=== PATIENT | female | born 1955 | race Hispanic/Latino ===

== ENCOUNTER 2018-05-10 17:25 | Emergency (ER) | payer BC ==
[2018-05-10 20:33] LABS: Absolute Lymphocytes (CBC) 0.7 K/uL (0.7-4.9); Absolute Monocytes 0.4 K/uL (0.1-1.3); Absolute Neutrophil 3.5 K/uL (1.8-8.0); Basophils % 0.5 % (0-1.3); Eosinophils % 0.4 % (0-4.4); Hematocrit 36.7 % (36.0-45.0); Lymphocytes % 14.3 % (15.3-44.8); MPV 7.4 fL (7.6-11.3); Monocytes % 9.6 % (3.3-12.3); RBC Red Blood Cell Count 4.49 M/uL (3.86-4.86)
[2018-05-10 20:55] LABS: Urine Appearance CLEAR; Urine Bilirubin NEGATIVE (NEG); Urine Blood TRACE (NEG); Urine Color YELLOW; Urine Glucose NEGATIVE (NEG); Urine Protein 1+ (NEG); Urine Specific Gravity <=1.005 (1.005-1.030); Urine Urobilinogen 0.2 mg/dL (0.2-1.0); Urine pH 7.5 (5.0-7.0)
[2018-05-10 20:58] LABS: Albumin 3.6 g/dL (3.4-5.0); Bilirubin Direct 0.3 mg/dL (0-0.2); Bilirubin Total 0.8 mg/dL (0.2-1.0); Protein, Total 8.1 g/dL (6.4-8.2)
[2018-05-10] MEDS ORDERED: NA CHLORIDE 0.9% 1,000 ML ONE (21:02)
[2018-05-10] MEDS ORDERED: MORPHINE 4 MG/ML SYR ONE ×2 (21:02→23:09)
[2018-05-10] MEDS ORDERED: ONDANSETRON 4 MG/2 ML VIAL ONE (21:02)
[2018-05-10 21:15] LABS: Urine Microscopic Reflex ORDER UMIC
[2018-05-10 21:20] LABS: Urine Bacteria 20-50 /HPF (<20); Urine Culture Reflex Order REFLEXED
[2018-05-10] MEDS ORDERED: KCL 20 MEQ/100 mL IVPB 20 MEQ/100 ML BAG IV ONE (22:29)
--- NOTE | 2018-05-10 23:12 | ER ---
Nurse's Notes [facility] Name: Fiona Gonzalez Age: 62 yrs Sex: Female : 1955 Arrival Date: 05/10/2018 Time: 17:27 Bed 20 Private MD: out of town, doctor Diagnosis: Retroperitoneal mass Presentation: 05/10 17:30 Presenting complaint: Patient states: known umbilical hernia x 1 month. c/o pain. sv Transition of care: patient was not received from another setting of care. Onset of symptoms was April 2018. Care prior to arrival: None. 17:30 Method Of Arrival: Wheelchair sv 17:30 Acuity: AYANNA 3 sv Triage Assessment: 17:30 General: Appears in no apparent distress. uncomfortable, obese, Behavior is calm, sv cooperative, appropriate for age. Respiratory: Respiratory effort is even, unlabored, Respiratory pattern is regular, symmetrical. Historical: - Allergies: 17:31 No Known Allergies; sv - PMHx: 17:31 Umbilical hernia; Hypertension; sv - PSHx: 17:31 ; sv Screenin:55 Abuse screen: Denies threats or abuse. Nutritional screening: No deficits noted. jb4 Tuberculosis screening: No symptoms or risk factors identified. Fall Risk IV access (20 points). Ambulatory Aid- Crutches/Cane/Walker (15 pts). Total Etienne Fall Scale indicates Low Risk Score (25-44 pts). Fall prevention measures have been instituted. Side Rails Up X 2 Placed close to Nursing Station Frequent Obs/Assesments occuring Family Present and informed to notify staff if they need to leave bedside. Assessment: 19:55 General: Appears in no apparent distress. uncomfortable, Behavior is calm, cooperative, jb4 appropriate for age. Pain: Complains of pain in umbilical area Pain radiates to abdomen Pain currently is 10 out of 10 on a pain scale. Quality of pain is described as burning, stabbing, Pain began 2-3 days ago. Is intermittent. Neuro: Level of Consciousness is awake, alert, obeys commands, Oriented to person, place, time, situation. Cardiovascular: Patient's skin is warm and dry. Respiratory: Airway is patent Respiratory effort is even, unlabored, Respiratory pattern is regular, symmetrical. GI: Abdomen is non-distended, obese, Bowel sounds present X 4 quads. Abd is soft X 4 quads Abdomen is tender to palpation X 4 quads. : No signs and/or symptoms were reported regarding the genitourinary system. EENT: No signs and/or symptoms were reported regarding the EENT system. Derm: Skin is intact, Skin is pink, warm \T\ dry. Musculoskeletal: Circulation, motion, and sensation intact. 21:00 Reassessment: Patient appears in no apparent distress at this time. Patient and/or jb4 family updated on plan of care and expected duration. Pain level reassessed. Patient is alert, oriented x 3, equal unlabored respirations, skin warm/dry/pink. 22:30 Reassessment: Patient appears in no apparent distress at this time. Patient and/or jb4 family updated on plan of care and expected duration. Pain level reassessed. Patient is alert, oriented x 3, equal unlabored respirations, skin warm/dry/pink. Provider at the bedside. 22:30 Reassessment: Patient appears in no apparent distress at this time. Patient and/or jb4 family updated on plan of care and expected duration. Pain level reassessed. Patient is alert, oriented x 3, equal unlabored respirations, skin warm/dry/pink. 23:30 Reassessment: Patient appears in no apparent distress at this time. Patient and/or jb4 family updated on plan of care and expected duration. Pain level reassessed. Patient is alert, oriented x 3, equal unlabored respirations, skin warm/dry/pink. 23:59 Reassessment: Report called to HUNTER Kamara at [facility]. jb4 05/11 00:30 Reassessment: Patient appears in no apparent distress at this time. Patient and/or jb4 family updated on plan of care and expected duration. Pain level reassessed. Patient is alert, oriented x 3, equal unlabored respirations, skin warm/dry/pink. 01:21 Reassessment: Patient appears in no apparent distress at this time. Patient and/or jb4 family updated on plan of care and expected duration. Pain level reassessed. Patient is alert, oriented x 3, equal unlabored respirations, skin warm/dry/pink. PT being transferred to receiving facility By EMS. Vital Signs: 05/10 17:31 BP 164 / 76; Pulse 89; Resp 18; Temp 98.7; Pulse Ox 100% ; Weight 113.4 kg; Height 5 sv ft. 1 in. (154.94 cm); Pain 10/10; 20:30 BP 147 / 96; Pulse 94; Resp 16; Pulse Ox 98% on R/A; jb4 21:00 BP 168 / 93; Pulse 83; Resp 16; Pulse Ox 97% on R/A; jb4 22:30 BP 165 / 86; Pulse 83; Resp 16; Pulse Ox 100% on R/A; jb4 22:56 BP 128 / 81; Pulse 66; Resp 17; Temp 98.0; Pulse Ox 100% on R/A; jb4 04 00:00 BP 141 / 57; Pulse 89; Resp 16; Pulse Ox 98% on R/A; jb4 01:21 BP 129 / 89; Pulse 86; Resp 16; Pulse Ox 96% ; jb4 05/10 17:31 Body Mass Index 47.24 (113.40 kg, 154.94 cm) sv ED Course: 05/10 17:27 Patient arrived in ED. as 17:29 out of town, doctor is Private Physician. as 17:31 Triage completed. sv 17:32 Arm band placed on. sv 19:20 Chino Nix MD is Attending Physician. tw4 19:55 Patient has correct armband on for positive identification. Placed in gown. Bed in low jb4 position. Call light in reach. Side rails up X 1. Pulse ox on. NIBP on. 19:58 Radiology exam delayed due to lab results not completed at this time. (BUN/Creatinine). vm2 20:00 Missed attempt(s): 20 gauge in left antecubital area. jb4 20:14 Radiology exam delayed due to lab results not completed at this time. (BUN/Creatinine). vm2 20:35 Wong Purcell, RN is Primary Nurse. jb4 21:[address] via wheelchair. vm2 21:21 CT completed. Patient tolerated procedure well. Patient moved back from CT. nj 21:41 CT Abd/Pelvis - W/Contrast In Process Unspecified. EDMS 05/11 01:21 No provider procedures requiring assistance completed. Patient transferred, IV remains jb4 in place. Administered Medications: 05/10 21:06 Drug: Zofran 4 mg Route: IVP; Site: left wrist; jb4 21:30 Follow up: Response: No adverse reaction; Nausea is decreased jb4 21:08 Drug: NS 0.9% 1000 ml Route: IV; Rate: 1 bolus; Site: left wrist; jb4 22:20 Follow up: Response: No adverse reaction; IV Status: Completed infusion; IV Intake: jb4 1000ml 21:09 Drug: morphine 4 mg Route: IVP; Site: left wrist; jb4 21:30 Follow up: Response: No adverse reaction; Pain is decreased jb4 22:23 Drug: Potassium Chloride 20 mEq Route: IV; Rate: calculated rate; Site: left wrist; jb4 05/11 00:00 Follow up: Response: No adverse reaction; IV Status: Completed infusion; IV Intake: jb4 100ml 05/10 23:01 Drug: morphine 4 mg Route: IVP; Site: left wrist; jb4 23:50 Follow up: Response: No adverse reaction; Pain is decreased jb4 Intake: 22:20 IV: 1000ml; Total: 1000ml. jb4 05/11 00:00 IV: 100ml; Total: 1100ml. jb4 Outcome: 05/10 23:12 ER care complete, transfer ordered by . tw4 05/11 01:21 Transferred by ground EMS to [facility], Transfer form completed. jb4 Condition: stable Discharge instructions given to patient, Instructed on the need for transfer, Demonstrated understanding of instructions. 01:31 Patient left the ED. jb4 Signatures: Dispatcher [employer] EDMS Maria Luisa Serrano RN RN sv Martinez, Amelia as Bryson, James, RN RN jb4 Kwasi Hsu [facility] Chino Nix MD MD tw4 Corrections: (The following items were deleted from the chart) 01:05/10 20:00 Risk Assessment: Do you want to hurt yourself or someone else? Patient jb4 reports no desire to harm self or others. jb4 05/11 01: 04 20:00 Initial Sepsis Screen: Does the patient meet any 2 criteria? No. Patient's jb4 initial sepsis screen is negative. Does the patient have a suspected source of infection? No. Patient's initial sepsis screen is negative. jb4
--- NOTE | 2018-05-10 23:12 | EDPHYS ---
Physician Documentation [facility] Name: Fiona Gonzalez Age: 62 yrs Sex: Female : 1955 Arrival Date: 05/10/2018 Time: 17:27 Bed 20 Private MD: out of town, doctor ED Physician Chino Nix HPI: 05/11 01:20 This 62 yrs old Female presents to ER via Wheelchair with complaints of tw4 Umbilical Hernia. 01:20 The patient presents with abdominal pain. The symptoms do not radiate. Associated signs tw4 and symptoms: none. The symptoms are described as dull. Modifying factors: The symptoms are alleviated by nothing, the symptoms are aggravated by nothing. Severity of pain: At its worst the pain was moderate in the emergency department the pain. 3 week(s) ago, and became worse yesterday, The patient has not experienced similar symptoms in the past. Historical: - Allergies: 05/10 17:31 No Known Allergies; sv - PMHx: 17:31 Umbilical hernia; Hypertension; sv - PSHx: 17:31 ; sv ROS: 05/11 01:20 Constitutional: Negative for fever, chills, and weight loss, Eyes: Negative for injury, tw4 pain, redness, and discharge, Cardiovascular: Negative for chest pain, palpitations, and edema, Respiratory: Negative for shortness of breath, cough, wheezing, and pleuritic chest pain, Back: Negative for injury and pain, MS/Extremity: Negative for injury and deformity, Skin: Negative for injury, rash, and discoloration, Neuro: Negative for headache, weakness, numbness, tingling, and seizure. Abdomen/GI: Positive for abdominal pain. Exam: 01:20 Constitutional: This is a well developed, well nourished patient who is awake, alert, tw4 and in no acute distress. Head/Face: Normocephalic, atraumatic. Chest/axilla: Normal chest wall appearance and motion. Nontender with no deformity. No lesions are appreciated. Cardiovascular: Regular rate and rhythm with a normal S1 and S2. No gallops, murmurs, or rubs. Normal PMI, no JVD. No pulse deficits. Respiratory: Lungs have equal breath sounds bilaterally, clear to auscultation and percussion. No rales, rhonchi or wheezes noted. No increased work of breathing, no retractions or nasal flaring. Back: No spinal tenderness. No costovertebral tenderness. Full range of motion. Skin: Warm, dry with normal turgor. Normal color with no rashes, no lesions, and no evidence of cellulitis. 01:20 Abdomen/GI: Inspection: abdomen appears normal, Bowel sounds: normal, Palpation: mild abdominal tenderness, Hernia: noted in the umbilical area, incarceration, is not appreciated, tenderness, that is mild. Vital Signs: 05/10 17:31 BP 164 / 76; Pulse 89; Resp 18; Temp 98.7; Pulse Ox 100% ; Weight 113.4 kg; Height 5 sv ft. 1 in. (154.94 cm); Pain 10/10; 20:30 BP 147 / 96; Pulse 94; Resp 16; Pulse Ox 98% on R/A; jb4 21:00 BP 168 / 93; Pulse 83; Resp 16; Pulse Ox 97% on R/A; jb4 22:30 BP 165 / 86; Pulse 83; Resp 16; Pulse Ox 100% on R/A; jb4 22:56 BP 128 / 81; Pulse 66; Resp 17; Temp 98.0; Pulse Ox 100% on R/A; jb4 05/11 00:00 BP 141 / 57; Pulse 89; Resp 16; Pulse Ox 98% on R/A; jb4 01:21 BP 129 / 89; Pulse 86; Resp 16; Pulse Ox 96% ; jb4 05/10 17:31 Body Mass Index 47.24 (113.40 kg, 154.94 cm) sv MDM: 05/10 19:20 Patient medically screened. [facility] 05/11 01:22 Data reviewed: vital signs, nurses notes. Data interpreted: Pulse oximetry: tw4 Interpretation: normal. Counseling: I had a detailed discussion with the patient and/or guardian regarding: the historical points, exam findings, and any diagnostic results supporting the discharge/admit diagnosis. 05/10 19:22 Order name: Basic Metabolic Panel; Complete Time: 21:57 [facility] 05/10 22:38 Interpretation: Normal except: K 3.0; NA 131; CL 92; GLUC 118; GFR 68. [facility] 05/10 19:22 Order name: CBC with Diff; Complete Time: 21:57 [facility] 05/10 22:39 Interpretation: Normal except: MCH 26.7; LYM% 14.3; WILEY% 75.2; MPV 7.4. [facility] 05/10 19:22 Order name: Creatinine for Radiology; Complete Time: 21:59 [facility] 05/10 19:22 Order name: Hepatic Function; Complete Time: 21:59 [facility] 05/10 22:39 Interpretation: Normal except: BILID 0.3; GLOB 4.5; A/G 0.8. [facility] 05/10 19:22 Order name: Lipase; Complete Time: 21:59 [facility] 05/10 19:23 Order name: Urinalysis; Complete Time: 21:59 [facility] 05/10 22:39 Interpretation: Normal except: UBLD TRACE; UPH 7.5; UPROT 1+; UESTR 2+. [facility] 05/10 19:24 Order name: CT Abd/Pelvis - W/Contrast [facility] 05/10 21:17 Order name: Urine Microscopic Only; Complete Time: 21:59 [facility] 05/10 21:21 Order name: Urine Culture [facility] 05/10 19:22 Order name: IV Saline Lock; Complete Time: 20:47 [facility] 05/10 19:22 Order name: Labs collected and sent; Complete Time: 20:38 [facility] 05/10 19:23 Order name: Urine Dipstick-Ancillary (obtain specimen); Complete Time: 20:38 [facility] Administered Medications: 05/10 21:06 Drug: Zofran 4 mg Route: IVP; Site: left wrist; jb4 21:30 Follow up: Response: No adverse reaction; Nausea is decreased 4 21:08 Drug: NS 0.9% 1000 ml Route: IV; Rate: 1 bolus; Site: left wrist; jb4 22:20 Follow up: Response: No adverse reaction; IV Status: Completed infusion; IV Intake: jb4 1000ml 21:09 Drug: morphine 4 mg Route: IVP; Site: left wrist; jb4 21:30 Follow up: Response: No adverse reaction; Pain is decreased jb4 22:23 Drug: Potassium Chloride 20 mEq Route: IV; Rate: calculated rate; Site: left wrist; jb4 05/11 00:00 Follow up: Response: No adverse reaction; IV Status: Completed infusion; IV Intake: jb4 100ml 05/10 23:01 Drug: morphine 4 mg Route: IVP; Site: left wrist; jb4 23:50 Follow up: Response: No adverse reaction; Pain is decreased jb4 Disposition: 05/10/18 23:[address] [facility]. Diagnosis is Retroperitoneal mass. - Reason for transfer: Higher level of care. - Accepting physician is Dr Bass. - Condition is Stable. - Problem is new. - Symptoms have improved. Signatures: Dispatcher [employer] Maria Luisa Granger RN RN Wong Purcell RN RN jb4 Chino Nix MD MD tw4 Corrections: (The following items were deleted from the chart) 05/11 01:31 05/10 23:12 05/10/2018 23:[address] [facility]. jb4 Diagnosis is Retroperitoneal mass. Reason for transfer: Higher level of care. Accepting physician is Dr Bass. Condition is Stable. Problem is new. Symptoms have improved. tw4
--- NOTE | 2018-05-11 11:02 | RAD REPORT ---
EXAM DESCRIPTION: CT - Abdomen Pelvis W Contrast - 05/10/2018 9:59 pm CLINICAL HISTORY: The patient is 62 years old and is Female; ABD PAIN TECHNIQUE: Axial computed tomography images of the abdomen and pelvis with intravenous contrast. S agittal and coronal reformatted images were created and reviewed. This CT exam was performed using one or more of the following dose reduction techniques: automated exposure control, adjustment of t he mA and/or kV according to patient size, and/or use of iterative reconstruction technique. COMPARISON: None. FINDINGS: LUNG BASES: Unremarkable. No mass. No consolidation. ABDOMEN: LIVER: Diffuse hepatic steatosis. GALLBLADDER AND BILE DUCTS: Cholelithiasis without CT evidence of acute cholecystitis. No ductal dilation. PANCREAS: Unremarkable. No mass. No ductal dilation. SPLEEN: Unremarkable. No splenomegaly. ADRENALS: Unremarkable. No mass. KIDNEYS AND URETERS: No hydronephrosis. STOMACH AND BOWEL: Unremarkable. No obstruction. No mucosal thickening. PELVIS: APPENDIX: The appendix is seen and is within normal limits BLADDER: The bladder is decompressed. REPRODUCTIVE: Diffuse distention and tortuosity of the left ovarian vein. ABDOMEN and PELVIS: INTRAPERITONEAL SPACE: Unremarkable. No free air. No significant fluid collection. RETROPERITONEAL SPACE: Heterogenous retroperitoneal mass measuring 10.6 x 8.4 x 11.1 cm (TRV by AP by cc) to the right of the abdominal aorta with encasement of the right renal vasculature. Additiona lly, finding surrounds the abdominal aorta of more than 180 degrees. BONES/JOINTS: Grade 1 anterolisthesis of L4 on L5 on a degenerative basis Small retrolisthesis of L5 on S1 with vacuum phenomenon. Additional multilevel multifactoria l degenerative changes. No acute fracture. No dislocation. SOFT TISSUES: 3.5 cm defect in the abdominal wall with fat containing umbilical hernia measuring 9 .1 x 7.8 cm. VASCULATURE: See above. LYMPH NODES: Additional shotty retroperitoneal lymph nodes are present. IMPRESSION: 1. Large heterogenous retroperitoneal mass with circumferential encasement of the righ t renal vasculature, 270 degrees encasement of the juxtarenal abdominal aorta and associated diffuse prominence/tortuosity of the left ovarian vein suggestive of venous obstruction. Additional shotty re troperitoneal lymph nodes. Findings concerning for lymphoma or metastatic disease. 2. Hepatic steatosis and cholelithiasis. No CT evidence of acute cholecystitis. 3. Multilevel degenerative changes with lower lumbar spondylolistheses. 4. Large fat-containing umbilical hernia. Electronically signed by: Hugo Su DO 05/10/2018 9:52 PM CDT ADDENDUM: THIS REPORT CONTAINS FINDINGS THAT MAY BE CRITICAL TO PATIENT'S CARE: The findings were verbally discussed via telephone conference with Dr. Cooper Nix by Dr. Lis hilliard on 05/10/2018 9:58 PM CDT. The results were acknowledged and understood. Electronically signed by: Hugo Su DO 05/10/2018 9:59 PM CDT End of Addendum EXAM DESCRIPTION: CT Abdomen and Pelvis With Intravenous Contrast CLINICAL HISTORY: The patient is 62 years old and is Female; ABD PAIN TECHNIQUE: Axial computed tomography images of the abdomen and pelvis with intravenous contrast. S agittal and coronal reformatted images were created and reviewed. This CT exam was performed using one or more of the following dose reduction techniques: automated exposure control, adjustment of t he mA and/or kV according to patient size, and/or use of iterative reconstruction technique. COMPARISON: None. FINDINGS: LUNG BASES: Unremarkable. No mass. No consolidation. ABDOMEN: LIVER: Diffuse hepatic steatosis. GALLBLADDER AND BILE DUCTS: Cholelithiasis without CT evidence of acute cholecystitis. No ductal dilation. PANCREAS: Unremarkable. No mass. No ductal dilation. SPLEEN: Unremarkable. No splenomegaly. ADRENALS: Unremarkable. No mass. KIDNEYS AND URETERS: No hydronephrosis. STOMACH AND BOWEL: Unremarkable. No obstruction. No mucosal thickening. PELVIS: APPENDIX: The appendix is seen and is within normal limits BLADDER: The bladder is decompressed. REPRODUCTIVE: Diffuse distention and tortuosity of the left ovarian vein. ABDOMEN and PELVIS: INTRAPERITONEAL SPACE: Unremarkable. No free air. No significant fluid collection. RETROPERITONEAL SPACE: Heterogenous retroperitoneal mass measuring 10.6 x 8.4 x 11.1 cm (TRV by AP by cc) to the right of the abdominal aorta with encasement of the right renal vasculature. Additiona lly, finding surrounds the abdominal aorta of more than 180 degrees. BONES/JOINTS: Grade 1 anterolisthesis of L4 on L5 on a degenerative basis Small retrolisthesis of L5 on S1 with vacuum phenomenon. Additional multilevel multifactoria l degenerative changes. No acute fracture. No dislocation. SOFT TISSUES: 3.5 cm defect in the abdominal wall with fat containing umbilical hernia measuring 9 .1 x 7.8 cm. VASCULATURE: See above. LYMPH NODES: Additional shotty retroperitoneal lymph nodes are present. IMPRESSION: 1. Large heterogenous retroperitoneal mass with circumferential encasement of the righ t renal vasculature, 270 degrees encasement of the juxtarenal abdominal aorta and associated diffuse prominence/tortuosity of the left ovarian vein suggestive of venous obstruction. Additional shotty re troperitoneal lymph nodes. Findings concerning for lymphoma or metastatic disease. 2. Hepatic steatosis and cholelithiasis. No CT evidence of acute cholecystitis. 3. Multilevel degenerative changes with lower lumbar spondylolistheses. 4. Large fat-containing umbilical hernia. Electronically signed by: Hugo Su DO 05/10/2018 9:52 PM CDT Due to temporary technical issues with the PACS/Fluency reporting system, reports are being signed by the in house radiologist as a courtesy to ensure prompt reporting. The interpreting radiologist is f ully responsible for the content of the report.
== END 2018-05-11 01:31 | disposition short-term general hospital (02) ==
LOC: ER 17:25
DX: R19.09 Other intra-abdominal and pelvic swelling, mass and lump (principal); I10 Essential (primary) hypertension
CPT/HCPCS: 36415; 74177; 80048; 80076; 81003; 81015; 83690; 85025; 87086; 87088; 96361; 96365; 96366; 96375; 99285; J2405; J7030; Q9967